=== PATIENT | female | born 1995 | race Caucasian/White ===

== ENCOUNTER 2022-05-11 15:30 | Observation (INO) | payer BC ==
[2022-05-11] MEDS ORDERED: hydrALAZINE 20 MG/ML VIAL SLOW IVP PRN (16:11)
[2022-05-11] MEDS ORDERED: Lactated Ringer's 1,000 ML IV SCH ×2 (16:15→17:15)
[2022-05-11] MEDS ORDERED: Ondansetron ODT 4 MG TAB PO PRN (16:16)
[2022-05-11] MEDS ORDERED: Acetaminophen 500 MG TAB PO SCH (17:15)
[2022-05-11 17:17] VITALS: BMI 29.2
[2022-05-11] MEDS ORDERED: Betamet Acet/Betamet Na Ph 30 MG/5 ML VIAL ONE (17:40)
[2022-05-11] MEDS ORDERED: Magnesium Sulfate 20 gm/500 ml 20 GM/500 ML BAG ONE (17:41)
[2022-05-11] MEDS ORDERED: Calcium Gluc 4.6 MEQ/10 ML (100 MG/ML) SLOW IVP PRN (17:45)
[2022-05-11] MEDS ORDERED: Promethazine HCl 25 MG/ML VIAL IM PRN (17:45)
[2022-05-11] MEDS ORDERED: Magnesium Sulfate 20 gm/500 ml 20 GM/500 ML BAG IVPB SCH (17:45)
[2022-05-11] MEDS ORDERED: Lorazepam 2 MG/ML VIAL SLOW IVP PRN (17:45)
[2022-05-11] MEDS ORDERED: Butorphanol Tartrate 1 MG/ML VIAL SLOW IVP PRN (17:45)
[2022-05-11] MEDS: Magnesium Sulfate 20 gm/500 ml 20 GM/500 ML BAG IVPB SCH (17:55)
[2022-05-11] MEDS: Betamet Acet/Betamet Na Ph 30 MG/5 ML VIAL IM SCH (17:57)
[2022-05-11] MEDS ORDERED: Penicillin G Potassium 5 MILL.UNITS in Sodium Chloride 0.9% 100 ML IVPB SCH (18:00)
[2022-05-11] MEDS: Ondansetron PF 4 MG/2 ML Vial IVP PRN (18:10)
[2022-05-11 19:14] LABS: Bilirubin Neg (Negative); Blood, Urine Negative (Negative); Clarity Clear (Clear); Glucose, Urine (Dipstick) Normal (Negative); Ketone, Urine 150 mg/dL (Negative); Leukocyte 100 (Negative); Nitrite Negative (Negative); Protein, Urine (Dipstick) Negative (Neg-Trace); Specific Gravity, Urine 1.015 (1.005-1.030); Urobilinogen Normal mg/dL (Less than 2)
[2022-05-11 19:18] LABS: Bacteria/HPF 1+ HPF (None Seen); CAUTI Indications for Culture Pregnancy; RBC/HPF 0-3 HPF (0-3); WBC/HPF 0-3 HPF (0-3)
[2022-05-11 19:20] LABS: Urine Culture Reflex Yes Yes
[2022-05-11] MEDS ORDERED: Calcium Carbonate 500 MG ChewTAB PO PRN (22:04)
[2022-05-11 22:47] LABS: Bilirubin Neg (Negative); Blood, Urine Negative (Negative); Glucose, Urine (Dipstick) Normal (Negative); Ketone, Urine 150 mg/dL (Negative); Leukocyte Negative (Negative); Nitrite Negative (Negative); Protein, Urine (Dipstick) Negative (Neg-Trace); Specific Gravity, Urine 1.025 (1.005-1.030); Urobilinogen Normal mg/dL (Less than 2)
[2022-05-11 22:58] LABS: Clarity Clear (Clear)
[2022-05-11 22:59] LABS: Bacteria/HPF None Seen HPF (None Seen); CAUTI Indications for Culture Pregnancy; RBC/HPF None Seen HPF (0-3); Squamous Epithelial None Seen HPF (0-3); WBC/HPF None Seen HPF (0-3)
[2022-05-11] MEDS: Penicillin G 2.5 MILL.units 2.5 MILL.UNITS in Premix Bag 1 BAG IVPB SCH (23:11)
[2022-05-12] MEDS: Magnesium Sulfate 20 gm/500 ml 20 GM/500 ML BAG IVPB SCH ×2 (02:16→12:55)
[2022-05-12] MEDS: Penicillin G 2.5 MILL.units 2.5 MILL.UNITS in Premix Bag 1 BAG IVPB SCH (03:02)
[2022-05-12] MEDS: Ondansetron PF 4 MG/2 ML Vial IVP PRN (04:18)
[2022-05-12] MEDS ORDERED: Acetaminophen 500 MG TAB PO SCH (10:00)
[2022-05-12] MEDS ORDERED: Acetaminophen 500 MG TAB PO PRN (15:45)
[2022-05-12] MEDS: Betamet Acet/Betamet Na Ph 30 MG/5 ML VIAL IM SCH (17:57)
[2022-05-13 00:13] LABS: Group B Streptococcus by PCR Not Detected (NotDetected)
== END 2022-05-12 18:26 | disposition home or self-care (01) ==
LOC: CSHLD/OP 15:30 → CSHLD 19:26 → INTOOBSV 19:26
PROVIDERS: ADMIT Obstetrics & Gynecology; ATTEND Obstetrics & Gynecology
DX: O47.03 False labor before 37 completed weeks of gestation, third trimester (principal); Z3A.28 28 weeks gestation of pregnancy
CPT/HCPCS: 36415; 76817; 81001; 83735; 87086; 87480; 87510; 87653; 87660; 99285; G0378; J0595; J0702; J2405; J2540; J3475; J3490